=== PATIENT | male | born 1995 | race Caucasian/White ===

== ENCOUNTER 2017-12-26 21:45 | Emergency (ER) | payer BC, OTHER ==
[2017-12-26] MEDS ORDERED: Iohexol 240 (50 ml) PO STA (23:04)
[2017-12-26] MEDS ORDERED: Sodium Chloride 0.9% 1,000 ML IV ONE (23:04)
--- NOTE | 2017-12-26 23:24 | C.PDOC ---
History Of Present Illness 22 year old male presents to the ED with complaints of abdominal pain for 2 days. Pain started mid abdomen and has now radiated to RLQ. Pain is constant and no worsened by position. Patient denies having any nausea or vomiting. He has normal bowel movement and normal urination. He is not anorexic and had no fever or chills. Time Seen by Provider: 12/26/17 22:58 Chief Complaint (Nursing): Abdominal Pain History Per: Patient History/Exam Limitations: no limitations Onset/Duration Of Symptoms: Days Current Symptoms Are (Timing): Still Present Past Medical History Reviewed: Historical Data, Nursing Documentation, Vital Signs Vital Signs: Last Vital Signs Temp 98.6 F 12/26/17 21:52 Pulse 86 12/26/17 21:52 Resp 20 12/26/17 21:52 BP 137/84 12/26/17 21:52 Pulse Ox 99 12/26/17 23:45 - Medical History PMH: Asthma - [facility] Procedures CLOSURE SKIN & SUBCUTANEOUS NEC (07/19/14) TETANUS TOXOID ADMINIST (07/19/14) Family History: States: Unknown Family Hx - Social History Hx Tobacco Use: Yes Hx Alcohol Use: No Hx Substance Use: No - Immunization History Hx Tetanus Toxoid Vaccination: No Hx Influenza Vaccination: No Hx Pneumococcal Vaccination: No Review Of Systems Constitutional: Negative for: Fever, Chills Gastrointestinal: Positive for: Abdominal Pain (2 days). Negative for: Nausea, Vomiting, Diarrhea, Constipation Physical Exam - Physical Exam Appears: Non-toxic, No Acute Distress Skin: Normal Color, Warm Nose: Normal Oral Mucosa: Moist Neck: Normal, Supple Chest: Symmetrical Cardiovascular: Rhythm Regular Respiratory: Normal Breath Sounds Gastrointestinal/Abdominal: Normal Exam, Soft, No Tenderness, No Distention, No Guarding, No Rebound Back: No CVA Tenderness Neurological/Psych: Oriented x3, Normal Speech, Normal Cognition ED Course And Treatment - Laboratory Results Result Diagrams: 12/26/17 23:45 12/26/17 23:45 Lab Interpretation: No Acute Changes O2 Sat by Pulse Oximetry: 99 (RA) Pulse Ox Interpretation: Normal Medical Decision Making Medical Decision Making: IMPRESSION: Persistent abdominal pain Plan: --CT ABD Pelvis PO & IV contrast --CMP Panel --Lipase --CBC w/differential --Omnipaque 50 ml --Urinalysis Disposition - Disposition Disposition Time: 00:34 Condition: STABLE Forms: [facility] ([place]) - Clinical Impression Clinical Impression: Abdominal pain - Scribe Statement The provider has reviewed the documentation as recorded by the Scribe (Rosa Manzo) Provider Attestation: All medical record entries made by the Scribe were at my direction and personally dictated by me. I have reviewed the chart and agree that the record accurately reflects my personal performance of the history, physical exam, medical decision making, and the department course for this patient. I have also personally directed, reviewed, and agree with the discharge instructions and disposition. Physician Patient Turnover Patient Signed Over To: Tiburcio Crocker Handoff Comments: Pending CT
[2017-12-26] MEDS ORDERED: Sodium Chloride 0.9% 1,000 ML ONE (23:34)
[2017-12-26] MEDS ORDERED: Iohexol 240 (50 ml) ONE (23:34)
[2017-12-26 23:48] LABS: BASO # 0.1 K/uL (0.0-0.2); BASO % 0.6 % (0.0-2.0); EOS # 0.3 K/uL (0.0-0.7); EOS % 2.9 % (0.0-4.0); HEMOGLOBIN 13.9 g/dL (12.0-18.0); LYMPH # 3.1 K/uL (1.0-4.3); LYMPH % 30.7 % (20.0-40.0); MEAN CELL VOLUME 89.2 fL (80.0-94.0); MEAN CORPUSCULAR HEMOGLOBIN 31.2 pg (27.0-31.0); MEAN PLATELET VOLUME 8.6 fL (7.2-11.7); MONO # 0.9 K/uL (0.0-0.8); MONO % 8.6 % (0.0-10.0); NEUT # 5.8 K/uL (1.8-7.0); NEUT % 57.2 % (50.0-75.0); RBC 4.46 Mil/uL (4.40-5.90); RED CELL DISTRIBUTION WIDTH 13.2 % (11.5-14.5); WHITE BLOOD COUNT 10.1 K/uL (4.8-10.8)
[2017-12-26 23:57] LABS: URINE BILIRUBIN NEGATIVE (NEGATIVE); URINE BLOOD NEGATIVE (NEGATIVE); URINE CLARITY Hazy (Clear); URINE COLOR Yellow (YELLOW); URINE GLUCOSE (UA) NORMAL (Normal); URINE LEUKOCYTE ESTERASE NEG Leu/uL (Negative); URINE PROTEIN NEGATIVE (NEGATIVE); URINE UROBILINOGEN NORMAL mg/dL (0.2-1.0)
[2017-12-27] LABS: ALB/GLOB RATIO 1.3 (1.0-2.1); ALBUMIN 4.5 g/dL (3.5-5.0); ALT/SGPT 39 U/L (21-72); AST/SGOT 25 U/L (17-59); BLOOD UREA NITROGEN 13 mg/dL (9-20); CALCIUM 9.6 mg/dl (8.6-10.4); GFR AFRICAN-AMERICAN > 60; GFR NON-AFRICAN AMERICAN > 60; LIPASE 22 U/L (23-300)
[2017-12-27] MEDS ORDERED: Iodixanol 320 MG/ML 100 ML BOTTLE IV ONE (00:15)
[2017-12-27 01:55] VITALS: O2SAT 100
--- NOTE | 2017-12-27 04:04 | CT ---
EXAM: CT Abdomen and Pelvis With Intravenous Contrast EXAM DATE/TIME: 12/26/2017 11:05 PM CLINICAL HISTORY: 22 years old, male; Pain; Abdominal pain; Additional info: Abd pain TECHNIQUE: Axial computed tomography images of the abdomen and pelvis with intravenous contrast. All CT scans at this facility use one or more dose reduction techniques, viz.: automated exposure control; ma/kV adjustment per patient size (including targeted exams where dose is matched to indication; i.e. head); or iterative reconstruction technique. Coronal and sagittal reformatted images were created and reviewed. CONTRAST: 100 mL of [id number] administered intravenously. COMPARISON: No relevant prior studies available. FINDINGS: The liver is normal. The spleen is normal. The pancreas is normal. No gallstones. No hydronephrosis or perinephric stranding. The bowel appears normal. The appendix is identified on axial images 99 - 104, coronal images 43 - 48. It is mildly dilated measuring 7-8 mm. There is lack of intraluminal air and the lumen does not fill with contrast. The dilation and lack of intraluminal air/lack of lumen opacification suggest obstruction, however there is no wall hyperemia or stranding in the periappendiceal fat to suggest active inflammation at this time. IMPRESSION: Dilated, unopacified appendix with lack of intraluminal air. Findings are concerning for appendicitis however there is no wall hyperemia or stranding in the surrounding fat, at least some of which would be expected with an acute infectious/inflammatory process. Clinical correlation is recommended. If there are prior studies, I would be happy to correlate them as the mild dilation could represent the patient's baseline.
[2017-12-27 04:19] VITALS: RESP 18
[2017-12-27] MEDS ORDERED: metroNIDAZOLE IV 500 mg/100 ml 500 MG/100 ML BAG IVPB STA (04:42)
[2017-12-27] MEDS ORDERED: Ciprofloxacin 400mg/200ml D5W 400 MG/200 ML BAG IVPB SCH (04:45)
[2017-12-27] MEDS ORDERED: metroNIDAZOLE IV 500 mg/100 ml 500 MG/100 ML BAG ONE (04:55)
[2017-12-27] MEDS ORDERED: Ciprofloxacin 400mg/200ml D5W 400 MG/200 ML BAG IVPB ONE (04:55)
--- NOTE | 2017-12-27 05:41 | CP.PCM.CON ---
History of Present Illness - History of Present Illness History of Present Illness: General Surgery Consult Note for Dr. Kerr 22M with no PMH or PSH, presents with 3 day history of right lower abdominal pain worse when he lifts. He reports that this has never happened before. Nothing makes it better strenuous physical activity makes it worse. He reports that he is moving his bowels, and urinating without pain or blood. He denies any fevers or chills at home. He reports no change in his appetite currently requesting to eat. PMH: None PSH: None ALL: NKDA Social: Daily Tobacco, Ethanol and marijuana use Review of Systems - Constitutional Constitutional: absent: Anorexia, Chills, Fever, Weakness - Cardiovascular Cardiovascular: absent: Chest Pain, Dyspnea - Respiratory Respiratory: absent: Dyspnea - Gastrointestinal Gastrointestinal: Abdominal Pain, Constipation. absent: Change in Stool Character, Heartburn, Hematemesis, Hematochezia, Loose Stools, Nausea, Vomiting - Genitourinary Genitourinary: absent: Difficulty Urinating, Dysuria Past Patient History - Past Social History Smoking Status: Light Smoker < 10 Cigarettes Daily - PULMONARY Hx Asthma: Yes - PSYCHIATRIC Hx Substance Use: No Meds Allergies/Adverse Reactions: Allergies Allergy/AdvReac Type Severity Reaction Status Date / Time No Known Allergies Allergy Unverified 12/26/17 21:55 - Medications Medications: Current Medications Ciprofloxacin (Cipro 400mg/200ml Dsw) 400 mg in 200 mls @ 133 mls/hr IVPB Q12H EMILIANO PRN Reason: Protocol Metronidazole (Flagyl) 500 mg in 100 mls @ 100 mls/hr IVPB STAT STA PRN Reason: Protocol Stop: 12/27/17 05:41 Last Admin: 12/27/17 05:00 Dose: 100 mls/hr Physical Exam - Constitutional Appears: Non-toxic, No Acute Distress - Head Exam Head Exam: ATRAUMATIC, NORMOCEPHALIC - Eye Exam Eye Exam: EOMI, Normal appearance - ENT Exam ENT Exam: Mucous Membranes Moist - Cardiovascular Exam Cardiovascular Exam: REGULAR RHYTHM, +S1, +S2 - GI/Abdominal Exam GI & Abdominal Exam: Soft. absent: Distended, Firm, Guarding, Hernia - Neurological Exam Neurological exam: Alert, Oriented x3 - Psychiatric Exam Psychiatric exam: Normal Affect, Normal Mood - Skin Skin Exam: Dry, Intact Results - Vital Signs Recent Vital Signs: Last Vital Signs Temp 97.7 F 12/27/17 04:19 Pulse 60 12/27/17 04:19 Resp 18 12/27/17 04:19 BP 119/72 12/27/17 04:19 Pulse Ox 100 12/27/17 04:19 - Labs Result Diagrams: 12/26/17 23:45 12/26/17 23:45 Labs: Laboratory Results - last 24 hr 12/26/17 12/26/17 12/26/17 23:45 23:45 23:45 WBC 10.1 RBC 4.46 Hgb 13.9 Hct 39.8 MCV 89.2 MCH 31.2 H MCHC 35.0 RDW 13.2 Plt Count 196 MPV 8.6 Neut % (Auto) 57.2 Lymph % (Auto) 30.7 [place] % (Auto) 8.6 Eos % (Auto) 2.9 Baso % (Auto) 0.6 Neut # (Auto) 5.8 Lymph # (Auto) 3.1 [place] # (Auto) 0.9 H Eos # (Auto) 0.3 Baso # (Auto) 0.1 Sodium 144 Potassium 3.8 Chloride 106 Carbon Dioxide 24 Anion Gap 17 BUN 13 Creatinine 0.9 Est GFR ( Amer) > 60 Est GFR (Non-Af Amer) > 60 Random Glucose 93 Calcium 9.6 Total Bilirubin 0.5 AST 25 ALT 39 Alkaline Phosphatase 61 Total Protein 7.8 Albumin 4.5 Globulin 3.4 Albumin/Globulin Ratio 1.3 Lipase 22 L Urine Color Yellow Urine Clarity Hazy Urine pH 8.0 Ur Specific [place] 1.017 Urine Protein Negative Urine Glucose (UA) Normal Urine Ketones Negative Urine Blood Negative Urine Nitrate Negative Urine Bilirubin Negative Urine Urobilinogen Normal Ur Leukocyte Esterase Neg Urine RBC (Auto) < 1 Assessment & Plan - Assessment and Plan (Free Text) Assessment: 22M with right lower abdominal History and physical are consistent with CT scan report; no radiological signs of acute appendicitis most likely musculoskeletal. Recommend discharge home and followup with PCP, if pain gets worse or if the patient develops signs of infection return to the ED. Discussed With Dr. Cirilo Humphreys PGY2
[2017-12-27 07:43] VITALS: BP 122/59; PULSE 72; TEMP 98
== END 2017-12-27 07:43 | disposition home or self-care (01) ==
LOC: C.ER 21:45
DX: R10.9 Unspecified abdominal pain (principal)
CPT/HCPCS: 74177; 80053; 81001; 83690; 85025; 96361; 96365; 96367; 99285; J0744; J7040; Q9966; Q9967